=== PATIENT | female | born 1930 | race Native Hawaiian/Other Pacific Islander ===

== ENCOUNTER 2016-08-28 09:06 | Inpatient (IN) | payer OTHER ==
[2016-09-16] MEDS ORDERED: MECL25TA84 PO (20:45)
[2016-09-16] MEDS ORDERED: OMEP20CA PO (20:46)
[2016-09-16] MEDS ORDERED: ALEN70TA19 PO (20:47)
[2016-09-16] MEDS ORDERED: MULTIVITAMI1 OR (20:48)
[2016-09-16] MEDS ORDERED: PANT40TA PO (20:54)
[2016-09-16] MEDS ORDERED: MELATONIN CR3 MG PO (20:56)
== END 2016-09-28 08:00 | disposition still patient (30) ==
LOC: PAVB 09:06
PROVIDERS: ADMIT Internal Medicine
DX: Z51.89 Encounter for other specified aftercare (principal)

== ENCOUNTER 2016-09-28 09:00 | Inpatient (IN) | payer OTHER ==
[~2016-09-28 09:00] MED LIST: ALEN70TA19 PO; MECL25TA84 PO; MELATONIN CR3 MG PO; MULTIVITAMI1 OR; OMEP20CA PO; PANT40TA PO
== END 2016-10-29 10:55 | disposition still patient (30) ==
LOC: PAVB 09:00
PROVIDERS: ADMIT Internal Medicine
DX: Z51.89 Encounter for other specified aftercare (principal)

== ENCOUNTER 2016-10-29 11:45 | Inpatient (IN) | payer OTHER | END 2016-11-26 12:34 | disposition still patient (30) | LOC: PAVB 11:45 | PROVIDERS: ADMIT Internal Medicine | DX: Z51.89 Encounter for other specified aftercare (principal) ==

== ENCOUNTER 2016-11-26 12:49 | Inpatient (IN) | payer OTHER | END 2016-12-27 08:11 | disposition still patient (30) | LOC: PAVB 12:49 | PROVIDERS: ADMIT Internal Medicine | DX: Z51.89 Encounter for other specified aftercare (principal) ==

== ENCOUNTER 2016-12-27 09:09 | Inpatient (IN) | payer OTHER | END 2017-01-26 09:18 | disposition still patient (30) | LOC: PAVB 09:09 | PROVIDERS: ADMIT Internal Medicine | DX: Z51.89 Encounter for other specified aftercare (principal) ==

== ENCOUNTER 2017-01-13 16:37 | Outpatient (CLI) | payer OTHER | END 2017-01-13 19:17 | disposition home or self-care (01) | LOC: LAB 16:37 | DX: Z16.24 Resistance to multiple antibiotics (principal) | CPT/HCPCS: 87081 ==

== ENCOUNTER 2017-01-24 20:10 | Outpatient (CLI) | payer OTHER | END 2017-01-24 22:00 | disposition home or self-care (01) | LOC: RAD 20:10 | DX: M25.551 Pain in right hip (principal) ==

== ENCOUNTER 2017-01-24 22:29 | Inpatient (IN) | payer OTHER ==
[~2017-01-24] VITALS: Ht 170.2 cm; Wt 46.5 kg
[2017-01-24 22:46] VITALS: BP 103/50; TEMP 98.6
[2017-01-24 23:42] LABS: PLATELET COUNT 248 K/uL (152-353)
[2017-01-24 23:48] LABS: POTASSIUM 4.6 mmol/L (3.6-5.2)
[2017-01-25 04:00] VITALS: BP 122/51; TEMP 97.9
[2017-01-25 04:02] VITALS: BP 127/39; TEMP 98; Ht 170.2 cm; Wt 46.5 kg
[2017-01-25 08:01] VITALS: BP 125/47; TEMP 97.9
[2017-01-25 09:15] LABS: PLATELET COUNT 241 K/uL (152-353)
[2017-01-25 09:18] LABS: PARTIAL THROMBOPLASTIN TIME 26.6 SECONDS (24.5-33.6)
[2017-01-25 09:25] LABS: POTASSIUM 4.4 mmol/L (3.6-5.2)
[2017-01-25 11:42] VITALS: BP 123/49; TEMP 98.1
[2017-01-25 16:00] VITALS: BP 158/53; TEMP 98.3
[2017-01-25 19:54] VITALS: BP 169/47; TEMP 98.6
[2017-01-26] VITALS: BP 140/52; TEMP 98
[2017-01-26 04:00] VITALS: BP 154/49; TEMP 98.4
[2017-01-26 07:58] VITALS: BP 140/52; TEMP 98
[2017-01-26 12:00] VITALS: BP 128/65; TEMP 96.5
[2017-01-26 16:01] VITALS: BP 176/71; TEMP 97.6
== END 2017-01-26 18:56 | disposition short-term general hospital (02) | DRG 536 ==
LOC: ED 22:29 → MED/SURG 01-25 00:30
PROVIDERS: Internal Medicine; ADMIT Emergency Medicine
DX: S72.091A Other fracture of head and neck of right femur, initial encounter for closed fracture (principal); N30.01 Acute cystitis with hematuria; W01.190A Fall on same level from slipping, tripping and stumbling with subsequent striking against furniture, initial encounter; Y93.89 Activity, other specified; Y92.128 Other place in nursing home as the place of occurrence of the external cause; B96.20 Unspecified Escherichia coli [E. coli] as the cause of diseases classified elsewhere; G30.8 Other Alzheimer's disease; F02.80 Dementia in other diseases classified elsewhere, unspecified severity, without behavioral disturbance, psychotic disturbance, mood disturbance, and anxiety; M15.8 Other polyosteoarthritis; K21.9 Gastro-esophageal reflux disease without esophagitis; M25.551 Pain in right hip
CPT/HCPCS: 36415; 51702; 80053; 81000; 83735; 85027; 85610; 85730; 87077; 87086; 87088; 87186; 93005; 96361; 96365; 96372; 99284; J0696; J1650; J2060

== ENCOUNTER 2017-01-26 10:35 | Inpatient (IN) | payer OTHER | END 2017-01-27 16:30 | disposition E | LOC: PAVB 10:35 | PROVIDERS: ADMIT Internal Medicine | DX: Z51.89 Encounter for other specified aftercare (principal) ==